=== PATIENT | female | born 1990 | race Caucasian/White ===

== ENCOUNTER 2016-08-15 17:33 | Emergency (ER) | payer MEDICAID, OTHER ==
[~2016-08-15 17:33] MED LIST: LORTA5 PO; VENTAER INH
[2016-08-15 17:35] VITALS: BP 123/76; PULSE 146; RESP 20; TEMP 102.2; O2SAT 100
[2016-08-15] MEDS ORDERED: IBUPROFEN 800 MG TAB PO ONE (18:00)
[2016-08-15] MEDS ORDERED: MAGICADU2 SWISH-SWAL (18:34)
[2016-08-15] MEDS ORDERED: AMOX500C PO (18:34)
[2016-08-15] MEDS ORDERED: IBUP800T23 PO (18:34)
--- NOTE | 2016-08-15 18:42 | PD ---
HPI Chief Complaint: ENT Complaint Time Seen by Provider: 18:34 Travel History International Travel<30 days: No Contact w/Intl Traveler<30days: No Traveled to known affect area: No History of Present Illness HPI 26-year-old female presents to the ED for evaluation of 3 day history of sore throat, fevers, malaise. Onset gradual. Patient states pain radiates to the left ear. Endorses anorexia secondary to pain. She denies headache, sinus congestion, ear pain, rhinorrhea, difficulty breathing or difficulty swallowing secretions. Cough, abdominal pain, nausea or vomiting. She treated at home with Tylenol at approximately 3 PM. Patient is a current smoker. PFSH Past Medical History Asthma: Yes Blood Disorders: No Anxiety: No Depression: No Cancer: No Cardiovascular Problems: No COPD: No Diminished Hearing: No Endocrine: No Genitourinary: No Immune Disorder: No Musculoskeletal: Yes (SPINAL FISION) Neurologic: No Psychiatric: No Reproductive: No Respiratory: Yes (ASTHMA) Sleep Apnea: No ?: Not : 2 Para: 2 Miscarriage: 0 Past Surgical History Body Medical Devices: METAL IMPLANTS IN SPINE Social History Alcohol Use: Yes Tobacco Use: Yes Substance Use: No Allergies-Medications (Allergen,Severity, Reaction): Coded Allergies: Versed (Verified Allergy, Severe, Irritability/Anxiety, 08/15/16) Uncoded Allergies: IODINE DYE (Allergy, Severe, Rash, 01/31/12) Reported Meds & Prescriptions Reported Meds & Active Scripts Active Amoxicillin 500 Mg Cap 500 Mg PO TID 10 Days Magic Mouthwash Adult Liq (Multi-Ingredient Mouthwash/Gargle) 120 Ml Susp 10 Ml SWISH-SWAL ACHS Each 5mL contains: Nystatin 200,000units, Diphenhydramine 4.25mg, Viscous Lidocaine 10mg, Chicas syrup 0.8 mL Ibuprofen 800 Mg Tab 800 Mg PO Q8H PRN Hydrocodone/Acetaminophen 5 mg/325 mg 1 Tab Tab 1-2 Tab PO Q4H PRN Reported Ventolin Hfa (Albuterol Sulfate) 18 Gm Aero 2 Puff INH Q6 * SHAKE WELL BEFORE USE * Review of Systems Except as stated in HPI: all other systems reviewed are Neg Physical Exam Narrative GENERAL: Well-nourished, well-developed nontoxic appearing white female in no acute distress. SKIN: Warm and dry. HEAD: Normocephalic. Atraumatic. EYES: No scleral icterus. No injection or drainage. PERRLA. EOMI. ENT: Pear[place] pe[place] tympanic membranes bilaterally. Nasal mucosa is moist. Oropharynx with posterior erythema, 1+ tonsils and evita white exudates bilaterally. Uvula midline. Airway patent. NECK: Supple, trachea midline. + Anterior cervical lymphadenopathy. CARDIOVASCULAR: Regular rate and rhythm without murmurs, gallops, or rubs. 2+ DP and radial pulses bilaterally. RESPIRATORY: Breath sounds clear and equal bilaterally. No accessory muscle use. GASTROINTESTINAL: Abdomen soft, non-tender, nondistended. + Bowel sounds MUSCULOSKELETAL: No cyanosis, or edema. Patient is ambulatory and moves extremities spontaneously. BACK: Nontender without obvious deformity. No CVA tenderness. Data Data Last Documented VS Vital Signs Date Time Temp Pulse Resp B/P Pulse Ox O2 Delivery O2 Flow Rate FiO2 08/15/16 20:09 98.7 107 16 107/68 99 08/15/16 17:35 Room Air Orders Ibuprofen (Motrin) (08/15/16 18:00) Group A Rapid Strep Screen (08/15/16 18:31) Amoxicillin (Trimox) (08/15/16 18:45) ^ Insert Iv (08/15/16 18:42) Sodium Chlor 0.9% 1000 Ml Inj (Ns 1000 M (08/15/16 18:45) Dexamethasone Inj (Decadron Inj) (08/15/16 19:00) Strep Culture (Group A) (08/15/16 19:00) MDM Medical Decision Making Medical Screen Exam Complete: Yes Emergency Medical Condition: Yes Differential Diagnosis Pharyngitis versus strep pharyngitis versus viral illness versus URI versus deep neck space infection versus peritonsillar abscess versus other Narrative Course 26-year-old female presents to the ED for evaluation of 3 day history of sore throat, fevers, malaise. Onset gradual. Patient states pain radiates to the left ear. Endorses anorexia secondary to pain. She denies headache, sinus congestion, ear pain, rhinorrhea, difficulty breathing or difficulty swallowing secretions. Cough, abdominal pain, nausea or vomiting. She treated at home with Tylenol at approximately 3 PM. She is a current smoker Vitals reviewed. Temperature 102.2 orally, heart rate 146 on presentation. Patient states she smoked a cigarette just before arrival. Physical exam reveals a nontoxic- appearing white female in no acute distress. [place] tympanic membrane bilaterally. Oropharynx with posterior erythema, and 1+ tonsils and flank white exudates bilaterally. Uvula midline. Airway patent. Positive anterior cervical LAD. Remaining physical exam is otherwise unremarkable. Culture obtained and pending. Centor score 4. IV was established. Patient was administered a liter of normal saline, 8 mg of dexamethasone IV, amoxicillin 500 mg by mouth and 800 mg ibuprofen. Recheck of vitals reveals heart rate 107 , temp 98.7. She is prescribed 500 mg amoxicillin 3 times a day 10 days, 800 mg ibuprofen 3 times a day when necessary fever and pain, Magic mouthwash when necessary for pain. She is instructed to take all medication as prescribed, return for worsening of symptoms, otherwise follow up with the primary care provider. She indicated understanding of instructions and is agreeable to the care plan. She is stable and discharged home. Diagnosis Primary Impression: Strep pharyngitis Referrals: Primary Care Physician Patient Instructions: General Instructions, Strep Throat (ED) Additional Instructions: Rest, hydrate. Drink plenty of fluids such as sports drinks, Pedialyte, popsicles, clear broth. Amoxicillin 500 mg 3 times a day 10 days. Take all antibiotics as prescribed, even if your symptoms resolve. In other words, take the antibiotics until they are ALL GONE. 800 mg ibuprofen up to 3 times a day as needed for pain and fever. Magic mouthwash gargle in the back of the throat for 10-30 seconds as needed for pain. Replace toothbrush at the end of this illness. Follow-up with the primary care provider this week. Return to the ED for worsening of symptoms or any urgent or emergent medical condition. Med/Other Pt SpecificInfo: Prescription(s) given Scripts Amoxicillin 500 Mg [id number] Mg PO TID 10 Days Ref 0 Prov:Rachael Smith DO 08/15/16 Czgbtfid-Bqfkunzeyufwpov-Waqvliriz Liq (Magic Mouthwash Adult Liq)120 Ml Susp10 Ml SWISH-SWAL ACHS #120 ML Ref 0 Each 5mL contains: Nystatin 200,000units, Diphenhydramine 4.25mg, Viscous Lidocaine 10mg, Chicas syrup 0.8 mL Prov:Rachael Smith DO 08/15/16 Ibuprofen 800 Mg All841 Mg PO Q8H PRN (FEVER) #20 TAB Ref 0 Prov:Rachael Smith DO 08/15/16 Vielka Mendoza Aug 15, 2016 18:42
[2016-08-15] MEDS ORDERED: SODIUM CHLOR 0.9% 1000 ML INJ 1,000 ML IV ONE (18:45)
[2016-08-15] MEDS ORDERED: AMOXICILLIN (TRIHYDRATE) 500 MG CAP PO ONE (18:45)
[2016-08-15] MEDS ORDERED: DEXAMETHASONE SOD PHOS 4 MG/ML VIAL IV PUSH ONE (19:00)
[2016-08-15 20:09] VITALS: BP 107/68; TEMP 98.7
== END 2016-08-15 21:06 | disposition home or self-care (01) ==
LOC: NEPC 17:33
DX: J02.0 Streptococcal pharyngitis (principal); J45.909 Unspecified asthma, uncomplicated; F17.210 Nicotine dependence, cigarettes, uncomplicated
CPT/HCPCS: 87081; 87880; 96374; 99283; J1100; J7030